=== PATIENT | male | born 1965 | race Caucasian/White ===

== ENCOUNTER 2024-02-22 06:42 | Day surgery (SDC) | payer OTHER, SELFPAY ==
[2024-01-16 06:21] VITALS: BMI 27.4
[2024-02-09 12:16] VITALS: BMI 25.8
[2024-02-22 07:17] VITALS: BP 145/102; PULSE 78; RESP 18; TEMP 37.2; O2SAT 99
[2024-02-22] MEDS: LACTATED RINGERS 1,000 ML 150 ML IV CONT (07:20)
--- NOTE | 2024-02-22 07:24 | P.PNAN_ITS ---
Anes - Initial Pre Proc Eval Procedure: Operation Date: 02/22/24 08:30 Proposed Procedures p Screening Colonoscopy - Kyrie Mock MD Date/Time: 02/22/24 07:24 Surgeon: Kyrie Mock MD Pre Op Diagnosis: Neoplasm screening Patient Data Age: 58 Gender: M Height: 1.83 m Weight: 89.8 kg Last Vital Signs Temp 37.2 C 02/22/24 07:17 Pulse 78 02/22/24 07:17 Resp 18 02/22/24 07:17 BP 145/102 H 02/22/24 07:17 Pulse Ox 99 02/22/24 07:17 O2 Del Method Room Air 02/22/24 07:17 Allergies Allergy/AdvReac Type Severity Reaction Status Date / Time No Known Allergies Allergy Verified 02/22/24 07:16 Home Medications Medication Instructions Recorded Confirmed Type Super Beets 1 cap PO DAILY 02/09/24 02/22/24 History acetaminophen 500 mg tablet 500 mg PO QID PRN Pain 02/09/24 02/22/24 History (Acetaminophen Extra Strength) ascorbate calcium (vitamin C) 500 500 mg PO DAILY 02/09/24 02/22/24 History mg capsule multivitamin with minerals-folic 1 tablet PO DAILY 02/09/24 02/22/24 History acid 0.4 mg tablet omega-3 fatty acids-vitamin E 1 cap PO DAILY 02/09/24 02/22/24 History 1,000 mg capsule Patient hx anesthesia problems: none Family hx anesthesia problems: none Results Review: All pre-operative results and documents have been reviewed as part of the pre- operative evaluation. [facility] Past Medical History Medical History (Updated 02/22/24 @ 07:24 by Mal Carrillo MD) Overweight Social History Social History Smoking status: Never smoker Alcohol intake: current Drinks per week: 5 Alcohol use details: beer Substance use type: does not use Living arrangements: with family Spiritual care concerns: No Anes - Eval Final PreProcedure Day of Procedure 02/22/24 07:24 Patient weight: overweight Heart: regular rate and rhythm Lungs: clear to auscultation Airway: Mallampati scale class II Neurological: alert and oriented Last oral intake: >/= 8 hours ASA classification: II Emergent: no Anesthetic plan: proceed Anesthesia type and monitoring: general GIVS and standard monitoring Results Review: All pre-operative results and documents have been reviewed as part of the pre- operative evaluation. Informed Consent: The patient's anesthetic plan and its attendant risks and benefits were discussed with the patient/family/POA. Questions were solicited and answers provided to the satisfaction of the patient/family/POA.
--- NOTE | 2024-02-22 07:54 | P.HP_ITS ---
History of Present Illness History of Present Illness Consent: Risks, benefits, and alternatives have been discussed and questions answered. Patient agrees to proceed with procedure. Chief complaint: Neoplasm screening Narrative: Bryan Blue is a 58 year old male presents for screening colonoscopy per patient's current weight appetite and bowel movements are normal. He denies abdominal pain. Patient has had no bleeding. Family history is noncontributory . Review of Systems Review of Systems: All systems reviewed & are unremarkable except as noted in HPI and below PMFSH Past Medical History Medical History (Updated 02/22/24 @ 07:55 by Kyrie Mock MD) Overweight Social History Social History Smoking status: Never smoker Alcohol intake: current Drinks per week: 5 Alcohol use details: beer Substance use type: does not use Living arrangements: with family Spiritual care concerns: No Meds Home Medications and Allergies Home Medications Medication Instructions Recorded Confirmed Type Super Beets 1 cap PO DAILY 02/09/24 02/22/24 History acetaminophen 500 mg tablet 500 mg PO QID PRN Pain 02/09/24 02/22/24 History (Acetaminophen Extra Strength) ascorbate calcium (vitamin C) 500 500 mg PO DAILY 02/09/24 02/22/24 History mg capsule multivitamin with minerals-folic 1 tablet PO DAILY 02/09/24 02/22/24 History acid 0.4 mg tablet omega-3 fatty acids-vitamin E 1 cap PO DAILY 02/09/24 02/22/24 History 1,000 mg capsule Allergies Allergy/AdvReac Type Severity Reaction Status Date / Time No Known Allergies Allergy Verified 02/22/24 07:16 Vital Signs Vital Signs - 24 hr 02/22/24 07:17 Temperature 98.9 F Pulse Rate 78 Respiratory Rate 18 Blood Pressure 145/102 H Pulse Oximetry 99 Oxygen Delivery Room Air Exam Narrative: Physical exam reveals patient to be alert. Vital signs stable. HEENT exam is unremarkable. Patient is anicteric. Lungs are clear to auscultation and percussion is without murmur or extra sounds. Abdomen is soft nontender with no organomegaly. Digital external rectal exam is normal. Assessment and Plan Assessment and plan (1) Screen for colon cancer: Code(s): Z12.11 - Encounter for screening for malignant neoplasm of colon Status: Acute Assessment and Plan: Patient presents today for screening colonoscopy. He appears to be at average risk for colon polyps. Further recommendations may be given after endoscopy.
[2024-02-22 08:44] VITALS: BP 122/81; PULSE 78; RESP 16; O2SAT 100
[2024-02-22 08:54] VITALS: BP 130/89; PULSE 83; RESP 20; O2SAT 98
[2024-02-22 09:04] VITALS: BP 143/100; PULSE 81; RESP 20; O2SAT 99
--- NOTE | 2024-02-22 09:17 | WPDANESPN ---
Anes - Prog Note Post-Op Date/Time: 02/22/24 09:17 Cardiovascular status: normal Respiratory status: normal Airway patency: baseline Mental status: baseline Post-Op hydration status: normal Vital Signs: Last Vital Signs Temp 37.2 C 02/22/24 07:17 Pulse 81 02/22/24 09:04 Resp 20 02/22/24 09:04 BP 143/100 H 02/22/24 09:04 Pulse Ox 99 02/22/24 09:04 O2 Del Method Room Air 02/22/24 09:04 Pain Score (VAS): 0/10 I/O: Intake & Output 02/21/24 02/22/24 02/22/24 23:59 07:59 15:59 Intake Total 700 Balance 700 Patient Feedback: Patient satisfied with anesthetic care.
== END 2024-02-22 09:11 | disposition home or self-care (01) ==
PROVIDERS: PCP Family Medicine; Visit Provider Internal Medicine Gastroenterology
PROC: 0DJD8ZZ Inspection of Lower Intestinal Tract, Via Natural or Artificial Opening Endoscopic (ICD-10-PCS; CPT 45378; principal; 2024-02-22 08:30)
DX: Z12.11 Encounter for screening for malignant neoplasm of colon (principal); D12.6 Benign neoplasm of colon, unspecified
CPT/HCPCS: 45385

== ENCOUNTER 2024-02-22 09:00 | Outpatient (NON) | payer OTHER, SELFPAY | END 2024-02-22 09:01 | disposition home or self-care (01) | PROVIDERS: PCP Family Medicine; Visit Provider Internal Medicine Gastroenterology | DX: Z12.11 Encounter for screening for malignant neoplasm of colon (principal) | CPT/HCPCS: 88305 ==